=== PATIENT | female | born 1945 | race Caucasian/White ===

== ENCOUNTER 2017-12-30 08:52 | Emergency (ER) | payer MEDICARE ==
[2017-12-30 09:27] LABS: BASOPHILS 0.5 % (0-2); HEMATOCRIT 41.7 % (36.0-48.0); IMMATURE GRANULOCYTES 0.2 % (0-5); LYMPHOCYTES 28.3 % (15-50); MCH 31.6 pg (26.0-34.0); MCHC 33.6 g/dL (31.0-37.0); MCV 94.1 fL (80.0-100.0); MEAN PLATELET VOLUME 11.4 fL (7.4-10.4); MONOCYTES 11.3 % (2-11); NEUTROPHILS 57.7 % (40-80); PLATELET COUNT 240 10x3/uL (130-400); RBC 4.43 10x6/uL (4.00-5.40); RDW 12.7 % (11.5-14.5); WBC 8.1 10x3/uL (4.8-10.8)
[2017-12-30 09:35] LABS: INR 1.01 (0.85-1.17); PROTIME 12.9 SECONDS (11.6-15.0)
[2017-12-30 09:44] LABS: ALBUMIN 3.2 g/dL (3.4-5.0); ALKALINE PHOSPHATASE 57 U/L (46-116); ALT (SGPT) 20 U/L (10-68); CALC OSMOLALITY 278 mosm/kg (275-300); CALCIUM 8.7 mg/dL (8.5-10.1); CHLORIDE - SERUM 107 mmol/L (98-107); CREATININE - SERUM 0.8 mg/dL (0.6-1.3); GLUCOSE 96 mg/dL (74-106); PROTEIN - SERUM 7.2 g/dL (6.4-8.2); SODIUM 139 mmol/L (136-145); UREA NITROGEN 16 mg/dL (7-18); eGFR NON AFRICAN AMERICAN 75 mL/min (90-120)
[2017-12-30 10:10] LABS: APPEARANCE CLEAR (CLEAR); COLOR YELLOW (YELLOW)
[2017-12-30 10:11] LABS: BILIRUBIN NEGATIVE (NEGATIVE); GLUCOSE NEGATIVE (NEGATIVE); KETONE NEGATIVE (NEGATIVE); NITRITE NEGATIVE (NEGATIVE); PROTEIN NEGATIVE (NEGATIVE); SPECIFIC GRAVITY 1.005 (1.005-1.020); UROBILINOGEN NORMAL (NORMAL)
[2017-12-30] MEDS ORDERED: COZAAR50 MG PO (20:55)
[2017-12-30] MEDS ORDERED: PREMARIN0.3 MG PO (20:57)
[2017-12-30] MEDS ORDERED: ACIPHEX20 MG PO (20:58)
[2017-12-31 13:24] VITALS: BMI 25.4
== END 2017-12-30 11:20 | disposition home or self-care (01) ==
LOC: D.ER 08:52
PROVIDERS: Emergency Medicine
DX: G45.9 Transient cerebral ischemic attack, unspecified (principal); I10 Essential (primary) hypertension; R00.0 Tachycardia, unspecified

== ENCOUNTER 2017-12-30 17:22 | Observation (INO) | payer MEDICARE ==
[~2017-12-30] VITALS: Ht 162.6 cm; Wt 68.5 kg
--- NOTE | ~2017-12-30 | EC ---
PATIENT:CORY GARRETT DATE OF SERVICE: 12/30/17 SEX: F MEDICAL RECORD: [id number] DATE OF : [birth year] LOCATION:D.M2 D.211 AGE OF PATIENT: 72 ADMISSION DATE: 12/30/17 REFERRING PHYSICIAN: INTERPRETING PHYSICIAN: CANDELARIO MEDINA MD ECHOCARDIOGRAM REPORT ECHO CHARGES 4 ECHO COMPLETE Date: 12/31 CLINICAL DIAGNOSIS: CVA ECHOCARDIOGRAPHIC MEASUREMENTS (adult normal given) AC root (d.<3.7cm) 3.4 cm LV Septum d (<1.2 cm> 1.4 cm Valve Excursion 1.8 cm LV Septum (systole) 1.7 cm Left Atria (s.<4.0cm> 3.4 cm LVPW d(<1.2cm) 1.4 cm RV (d.<2.3cm) 4.1 cm LVPW (sytole) 1.6 cm LV diastole(<5.6CM) 4.4 cm MV E-F(>70mm/sec) cm LV systole 2.8 cm LVOT Diameter 1.8 cm MV exc.(>10mm) 1.4 cm Est.ejection fraction (50-75%) % DOPPLER: LVIT cm/sec A 94.0 cm/sec E 63.0 cm/sec LA cm/sec RVSP 41 mmHg LVOT 106 cm/sec AOP1/2T m/s Asc. Ao 149 cm/sec RVOT 68 cm/sec RA cm/sec PA 149 cm/sec AV Gradient Peak 8.89 mmHg AV Mean 3.81 mmHg AV Area 1.6 cm MV Gradient Peak 5.60 mmHg MV Mean 1.64 mmHg MV Area cm COMMENTS: Arborist Representative: 2 LAWRENCE GARCIA Supervisor [employer] Placing: 3 Dr. Whitney TAPE# PACS Pericardial Effusion N DATE OF SERVICE: PROCEDURE: Echocardiogram. FINDINGS: 1. Left ventricular chamber size is within normal limits. Left ventricular systolic function is normal. Overall ejection fraction estimated at 60%. 2. Left atrium is within normal limits at 3.4 cm. Right atrium and right ventricular chamber sizes are mildly dilated. 3. Valvular structures have normal structure and motion. ECHOCARDIOGRAM REPORT [id number] CORY GARRETT 4. Doppler interrogation reveals only trace mitral regurgitation, mild tricuspid regurgitation, no other valvular insufficiency or stenosis. 5. No evidence of pericardial effusion or left ventricular thrombus. TRANSINT:[id number] Voice Confirmation ID: [id number] DOCUMENT ID: [id number] CANDELARIO MEDINA MD at 1056 CC: [id number] DICTATION DATE: 12/31/17 1403 TUBE SPLICER: 12/31/17 1424 DIS IN 01/01/18 [place] [id number] [place] [id number]
[2017-12-30 18:40] LABS: BASOPHILS 0.5 % (0-2); EOSINOPHILS 2.1 % (0-7); HEMOGLOBIN 13.1 g/dL (12-16); IMMATURE GRANULOCYTES 0.1 % (0-5); LYMPHOCYTES 31.7 % (15-50); MCH 31.8 pg (26.0-34.0); MCHC 33.6 g/dL (31.0-37.0); MCV 94.7 fL (80.0-100.0); MEAN PLATELET VOLUME 11.6 fL (7.4-10.4); MONOCYTES 9.7 % (2-11); NEUTROPHILS 55.9 % (40-80); PLATELET COUNT 259 10x3/uL (130-400); RBC 4.12 10x6/uL (4.00-5.40); RDW 12.8 % (11.5-14.5)
[2017-12-30 18:48] LABS: INR 1.08 (0.85-1.17); PROTIME 13.6 SECONDS (11.6-15.0)
[2017-12-30 18:49] LABS: APTT 28.8 SECONDS (22.8-39.4)
[2017-12-30 18:52] LABS: ALBUMIN 3.2 g/dL (3.4-5.0); ALKALINE PHOSPHATASE 57 U/L (46-116); ALT (SGPT) 16 U/L (10-68); BILIRUBIN - TOTAL 0.34 mg/dL (0.2-1.3); CALC OSMOLALITY 286 mosm/kg (275-300); CALCIUM 8.5 mg/dL (8.5-10.1); CARBON DIOXIDE 25.6 mmol/L (21.0-32.0); CHLORIDE - SERUM 107 mmol/L (98-107); CREATININE - SERUM 0.7 mg/dL (0.6-1.3); GLUCOSE 84 mg/dL (74-106); POTASSIUM - SERUM 3.8 mmol/L (3.5-5.1); PROTEIN - SERUM 6.5 g/dL (6.4-8.2); SODIUM 144 mmol/L (136-145); UREA NITROGEN 15 mg/dL (7-18); eGFR NON AFRICAN AMERICAN 88 mL/min (90-120)
[2017-12-30] MEDS ORDERED: COZAAR50 MG PO (20:55)
[2017-12-30] MEDS ORDERED: PREMARIN0.3 MG PO (20:57)
[2017-12-30] MEDS ORDERED: ACIPHEX20 MG PO (20:58)
[2017-12-30 21:55] VITALS: BP 159/71
[2017-12-31] VITALS (7 sets, daily range): BP systolic 141–178; BP diastolic 71–84; Ht 162.6 cm; Wt 68.5 kg
[2018-01-01 03:33] VITALS: BP 189/81
[2018-01-01 04:49] LABS: BASOPHILS 0.3 % (0-2); EOSINOPHILS 2.6 % (0-7); HEMATOCRIT 40.6 % (36.0-48.0); HEMOGLOBIN 13.9 g/dL (12-16); IMMATURE GRANULOCYTES 0.1 % (0-5); LYMPHOCYTES 36.1 % (15-50); MCHC 34.2 g/dL (31.0-37.0); MCV 93.3 fL (80.0-100.0); MONOCYTES 9.4 % (2-11); NEUTROPHILS 51.5 % (40-80); PLATELET COUNT 282 10x3/uL (130-400); RBC 4.35 10x6/uL (4.00-5.40); RDW 12.2 % (11.5-14.5); WBC 9.2 10x3/uL (4.8-10.8)
[2018-01-01 05:06] LABS: CALC OSMOLALITY 281 mosm/kg (275-300); CALCIUM 8.6 mg/dL (8.5-10.1); CARBON DIOXIDE 22.1 mmol/L (21.0-32.0); CHLORIDE - SERUM 109 mmol/L (98-107); CHOL - HDL RATIO 2.2 ratio (2.3-4.1); CHOLESTEROL, TOTAL 198 mg/dL (0-200); CREATININE - SERUM 0.7 mg/dL (0.6-1.3); GLUCOSE 100 mg/dL (74-106); HDL CHOLESTEROL 90 mg/dL (32-96); LDL CHOLESTEROL 93 mg/dL (0-100); POTASSIUM - SERUM 3.5 mmol/L (3.5-5.1); SODIUM 142 mmol/L (136-145); TRIGLYCERIDE 76 mg/dL (30-200); UREA NITROGEN 11 mg/dL (7-18); eGFR NON AFRICAN AMERICAN 88 mL/min (90-120)
[2018-01-01 07:44] VITALS: BP 157/83
[2018-01-01 11:01] VITALS: BP 188/87
[2018-01-01] MEDS ORDERED: ASPIRIN325 MG PO (11:42)
[2018-01-01] MEDS ORDERED: PLAVIX75 MG PO (11:42)
[2018-01-01] MEDS ORDERED: LIPITOR40 MG PO (11:42)
[2018-01-01] MEDS ORDERED: NORVASC5 MG PO (11:43)
== END 2018-01-01 14:48 | disposition home or self-care (01) ==
LOC: D.ER 17:22 → OBSVTIME 18:14 → D.EDHOLD 18:14 → D.M2 18:14
PROVIDERS: Emergency Medicine; Internal Medicine Nephrology
DX: I63.9 Cerebral infarction, unspecified (principal); G81.91 Hemiplegia, unspecified affecting right dominant side; I10 Essential (primary) hypertension; R00.1 Bradycardia, unspecified; E78.5 Hyperlipidemia, unspecified; J45.909 Unspecified asthma, uncomplicated

== ENCOUNTER 2018-01-01 21:01 | Emergency (ER) | payer MEDICARE ==
[2017-12-31 13:24] VITALS: BMI 25.4
[~2018-01-01 21:01] MED LIST: ACIPHEX20 MG PO; ASPIRIN325 MG PO; COZAAR50 MG PO; LIPITOR40 MG PO; NORVASC5 MG PO; PLAVIX75 MG PO; PREMARIN0.3 MG PO
[2018-01-01 21:57] LABS: BASOPHILS 0.4 % (0-2); EOSINOPHILS 1.8 % (0-7); HEMATOCRIT 39.2 % (36.0-48.0); HEMOGLOBIN 13.2 g/dL (12-16); IMMATURE GRANULOCYTES 0.2 % (0-5); LYMPHOCYTES 26.1 % (15-50); MCH 31.5 pg (26.0-34.0); MCHC 33.7 g/dL (31.0-37.0); MCV 93.6 fL (80.0-100.0); MEAN PLATELET VOLUME 11.2 fL (7.4-10.4); MONOCYTES 11.2 % (2-11); NEUTROPHILS 60.3 % (40-80); PLATELET COUNT 269 10x3/uL (130-400); RBC 4.19 10x6/uL (4.00-5.40); RDW 12.3 % (11.5-14.5)
[2018-01-01 22:06] LABS: APTT 26.8 SECONDS (22.8-39.4); INR 1.05 (0.85-1.17); PROTIME 13.3 SECONDS (11.6-15.0)
[2018-01-01 22:11] LABS: ALBUMIN 3.1 g/dL (3.4-5.0); ANION GAP 11.4 mmol/L (8-16); BILIRUBIN - TOTAL 0.3 mg/dL (0.2-1.3); CALCIUM 8.7 mg/dL (8.5-10.1); CREATININE - SERUM 0.9 mg/dL (0.6-1.3); POTASSIUM - SERUM 3.4 mmol/L (3.5-5.1); PROTEIN - SERUM 6.4 g/dL (6.4-8.2)
== END 2018-01-01 22:25 | disposition short-term general hospital (02) ==
LOC: D.ER 21:01
PROVIDERS: Emergency Medicine
DX: I63.9 Cerebral infarction, unspecified (principal); I10 Essential (primary) hypertension